=== PATIENT | female | born 1995 | race Caucasian/White ===

== ENCOUNTER 2019-02-04 17:28 | Emergency (ER) | payer OTHER ==
[2019-02-04 17:49] VITALS: BP 124/69; PULSE 84; TEMP 97.6; BMI 26.2
[2019-02-04] MEDS ORDERED: KETOROLAC TROMETHAMINE 60 MG/2 ML VIAL IM ONE (18:25)
[2019-02-04] MEDS ORDERED: KETOROLAC TROMETHAMINE 60 MG/2 ML VIAL ONE (18:36)
--- NOTE | 2019-02-04 18:52 | PDOC ---
History of Present Illness - General Chief Complaint: Back Pain Stated Complaint: LOWER BACK PAIN Time Seen by Provider: 02/04/19 18:00 - History of Present Illness Initial Comments: 02/04/19 18:49 23-year-old female without comorbidities presents for lower back pain without radicular symptoms x1 day after lifting up something heavy yesterday. Past History - Past Medical History Allergies/Adverse Reactions: Allergies Allergy/AdvReac Type Severity Reaction Status Date / Time No Known Allergies Allergy Verified 02/04/19 17:47 Home Medications: Ambulatory Orders Cyclobenzaprine HCl [Flexeril 10 mg] 10 mg PO HS PRN #10 tablet 02/04/19 Ibuprofen [Motrin -] 600 mg PO TID #30 tablet 02/04/19 COPD: No CHF: No DVT: No Dementia: No - Surgical History Abdominal Surgery: No - Immunization History Immunization Up to Date: Yes - Psycho Social/Smoking Cessation Hx Smoking History: Never smoked Hx Alcohol Use: No Drug/Substance Use Hx: No Review of Systems - Review of Systems Musculoskeletal: Yes: Back Pain *Physical Exam - Vital Signs Last Vital Signs Temp Pulse Resp BP Pulse Ox 97.6 F 84 16 124/69 99 02/04/19 17:48 02/04/19 17:48 02/04/19 17:48 02/04/19 17:48 02/04/19 17:48 - Physical Exam 02/04/19 18:49 Lumbar spine skin color and temperature are normal. There is full nonpainful range of motion. 5 out of 5 strength in bilateral lower extremities. Straight leg raise test is negative bilaterally. Thighs and calves are soft and nontender. There are no gross sensory motor deficits. Neurovascularly intact. There is moderate bilateral paralumbar musculature spasm and tenderness. No midline tenderness. ED Treatment Course - Medications Given in the ED: ED Medications Discontinued Medications Generic Name Dose Route Start Last Admin Trade Name Freq PRN Reason Stop Dose Admin Ketorolac Tromethamine 60 mg 02/04/19 18:25 02/04/19 18:37 Toradol Injection - IM 02/04/19 18:26 60 mg ONCE ONE Administration Medical Decision Making - Medical Decision Making 02/04/19 18:49 Pain relieved with Toradol. Motrin and Flexeril at home follow-up with neurosurgery 02/04/19 18:50 Patient assures me there is no chance of . Discharge - Discharge Information Problems reviewed: Yes Clinical Impression/Diagnosis: Lumbar strain Condition: Stable Disposition: HOME - Admission No - Follow up/Referral Referrals: Georgi Avila [Primary Care Provider] - Gustavo Rios MD, FAANS [Staff Physician] - - Patient Discharge Instructions Additional Instructions: Please do not start the prescription Motrin until tomorrow evening at this time. You were given an injection of a long-acting anti-inflammatory in the emergency room. You may start the Flexeril tonight 1 tablet before bedtime will make you sleepy. You may take [id number] Tylenol in addition to the medication prescribed to you as directed. Return to the emergency room should symptoms worsen and without fail follow-up with neurosurgery in 2 to 3 days for further evaluation and treatment options. - Post Discharge Activity
== END 2019-02-04 19:11 | disposition home or self-care (01) ==
LOC: JERFT 17:28
PROC: 3E0233Z Introduction of Anti-inflammatory into Muscle, Percutaneous Approach (ICD-10-PCS; principal; 2019-02-04)
DX: S39.012A Strain of muscle, fascia and tendon of lower back, initial encounter (principal); X50.9XXA Other and unspecified overexertion or strenuous movements or postures, initial encounter; Y93.89 Activity, other specified; Y92.89 Other specified places as the place of occurrence of the external cause; Y99.8 Other external cause status
CPT/HCPCS: 99281-25